=== PATIENT | female | born 2005 | race Caucasian/White ===

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

== ENCOUNTER 2023-01-14 13:54 | Emergency (ER) | payer MEDICAID, OTHER ==
[2023-01-14 14:00] VITALS: BP 136/89; PULSE 88; O2SAT 100
--- NOTE | 2023-01-14 14:32 | ERPHSYRPT ---
- History of Present Illness Source: patient Exam Limitations: no limitations Patient Subjective Stated Complaint: had a neddle stick at 1340 today, has small puncture wound to left index finger Triage Nursing Assessment: pt alert, resp easy, walked in, skin w/d/p. 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 Baby's blood available for HIV/Hep testing. Pt immunized for HepB/Tdap and is currently not . Timing/Duration: other (Before ER arrival) Severity: mild Modifying Factors: Improves With: nothing Associated Symptoms: denies symptoms Allergies/Adverse Reactions: amoxicillin Allergy (Verified 01/14/23 13:58) mesalamine Allergy (Verified 01/14/23 13:59) Home Medications: Ferrous Gluconate [Iron] 1 ea DAILY 11/21/22 [History] Sulfasalazine 500 mg [Azulfidine 500 mg] 500 mg PO QID 12/22/22 [History] Hx Tetanus, Diphtheria Vaccination/Date Given: Yes Hx Influenza Vaccination/Date Given: Yes Hx Pneumococcal Vaccination/Date Given: No Immunizations Up to Date: Yes Travel Risk - International Travel Have you traveled outside of the country in past 3 weeks: No - Coronavirus Screening Are you exhibiting any of the following symptoms?: No Close contact with a COVID-19 positive Pt in past 14-21 Days: No - Vaccine Status Have you recieved a Covid-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 - Review of Systems Constitutional: No Symptoms Eyes: No Symptoms Ears, Nose, & Throat: No Symptoms Respiratory: No Symptoms Cardiac: No Symptoms Abdominal/Gastrointestinal: No Symptoms Genitourinary Symptoms: No Symptoms Musculoskeletal: No Symptoms Skin: No Symptoms Neurological: No Symptoms Psychological: No Symptoms Endocrine: No Symptoms Hematologic/Lymphatic: No Symptoms Immunological/Allergic: No Symptoms - Past Medical History Pertinent Past Medical History: Yes Neurological History: Migraines ENT History: No Pertinent History Cardiac History: No Pertinent History Respiratory History: Asthma Endocrine Medical History: Hypothyroidism Musculoskeletal History: No Pertinent History GI Medical History: GI Bleed History: No Pertinent History Psycho-Social History: Anxiety Female Reproductive Disorders: No Pertinent History Other Medical History: low iron - Past Surgical History Past Surgical History: Yes Cardiac: No Pertinent History Respiratory: No Pertinent History Gastrointestinal: No Pertinent History Other Surgical History: wisdom teeth removal - Social History Smoking Status: Never smoker Exposure to second hand smoke: No Drug Use: none Patient Lives Alone: No - Female History Hx Last Menstrual Period: 2 weeks ago Hx Now: No - Nursing Vital Signs Nursing Vital Signs: Initial Vital Signs Temperature 97.2 F 01/14/23 13:59 Pulse Rate 88 01/14/23 13:59 Respiratory Rate 16 01/14/23 13:59 Blood Pressure 136/89 01/14/23 13:59 O2 Sat by Pulse Oximetry 100 01/14/23 13:59 Pain Scale Pain Intensity 0 WNL - Physical Exam General Appearance: no apparent distress Eye Exam: PERRL/EOMI Ears, Nose, Throat Exam: normal ENT inspection Neck Exam: normal inspection Respiratory Exam: normal breath sounds Cardiovascular Exam: regular rate/rhythm Gastrointestinal/Abdomen Exam: soft Extremity Exam: other (Superficial needle stick L 2nd digit/Good hemostasis/FROM/good distal capillary return and sensation) Neurologic Exam: alert, oriented x 3, cooperative, card placer II-XII nml as tested, normal mood/affect, nml cerebellar function, nml station & gait, sensation nml Skin Exam: warm, dry Lymphatic Exam: No adenopathy SpO2 Interpretation: normal SpO2: 100 O2 Delivery: Room Air Ordered Tests: Active Orders 24 hr Category Date Time Status Wound Care STAT Care 01/14/23 14:25 Completed Medication Summary Discontinued Medications Generic Name Dose Route Start Last Admin Trade Name Kenroy PRN Reason Stop Dose Admin Morphine Sulfate Confirm 01/14/23 15:26 Morphine Sulfate 4 Mg/Ml Injection Administered 01/14/23 15:27 Dose 4 mg .ROUTE .STK-MED ONE Ondansetron HCl Confirm 01/14/23 15:26 Ondansetron Hcl 4 Mg/2 Ml Vial Administered 01/14/23 15:27 Dose 4 mg .ROUTE .STK-MED ONE - Progress Progress Note: 01/14/23 14:36 Nursing note and vital signs reviewed No food or housing insecurities noted HIV/Hepatitis profile drawn Employee Health alerted and appropriate paper work done Permission given for source to be tested No need for PEP which was agreed upon by pt Counseled pt/family regarding: diagnosis, need for follow-up Medical Desision Making - Risk of complications Low Risk: Low risk of morbidity from additional dx testing or treatment - Departure Departure Disposition: Home Clinical Impression: Needle stick injury of finger Condition: Stable Critical Care Time: No Referrals: NEGRO DUMONT MD [Primary Care Provider] - Follow up/PCP as directed Additional Instructions: Follow up with employee health Wash area 1-2 times a day with soap/water Watch for signs of infection-any pus/increasing redness/temperature greater than 100.5
[2023-01-14] MEDS ORDERED: MORPHINE SULFATE 4 MG INJ ONE (15:26)
[2023-01-14] MEDS ORDERED: Zofran 4 MG/2 ML VIAL ONE (15:26)
[2023-01-16 16:34] LABS: HBsAg Screen Negative (Negative); HIV Screen 4th Generation wRfx Non Reactive (Non Reactive); Hep B Surface Ab, Quant <3.1 mIU/mL (Immunity>9.9); Hep C Virus Ab Non Reactive (Non Reactive)
== END 2023-01-14 14:49 | disposition home or self-care (01) ==
LOC: ED 13:54
DX: S61.231A Puncture wound without foreign body of left index finger without damage to nail, initial encounter (principal); W46.0XXA Contact with hypodermic needle, initial encounter; Y92.239 Unspecified place in hospital as the place of occurrence of the external cause; Y99.0 Civilian activity done for income or pay; Z79.899 Other long term (current) drug therapy
CPT/HCPCS: 36415; 86317; 87340; 87389; 99282; G0472; 86803; J2270; J2405

== ENCOUNTER 2023-02-25 22:46 | Emergency (ER) | payer OTHER, MEDICAID ==
[2023-02-25] MEDS ORDERED: Zofran 4 MG/2 ML VIAL IV ONE (23:23)
[2023-02-25] MEDS ORDERED: Sodium Chloride 0.9% 1000 ML 1,000 ML IV STA (23:23)
[2023-02-25] MEDS ORDERED: Hydromorphone 1 mg/ml Injection IV ONE (23:23)
--- NOTE | 2023-02-25 23:27 | ERPHSYRPT ---
- History of Present Illness Time Seen by Provider: 02/25/23 23:20 Historian: patient, family Exam Limitations: no limitations Physician History: This is a 17-year-old female who has a history of ulcerative colitis and this morning she noticed significant pain that "flared up" suddenly. It was in the left upper quadrant. Throughout the day it has radiated across her upper abdomen in the epigastric region to the right side. There is been bloody stools present that are loose. This has not increased. However, the pain has increased. Patient takes prednisone 35 mg orally each day. She has chronic anemia and she is on daily iron supplementation. She has had these "flareups" once a month for the last 3 months. She denies chest pain. She denies shortness of breath. If she has to be transferred, patient wants to be transferred to [facility] in [place]. Timing/Duration: today Activities at Onset: none Quality: aching Abdominal Pain Onset Location: RUQ, LUQ, epigastric Pain Radiation: no radiation Severity of Pain-Max: moderate Severity of Pain-Current: moderate Modifying Factors: Improves With: other (Bloody diarrhea) Associated Symptoms: diarrhea (Bloody), loss of appetite Previous symptoms: same symptoms as today, recently seen, recently treated Allergies/Adverse Reactions: amoxicillin Allergy (Verified 02/26/23 01:20) Itching mesalamine Allergy (Verified 02/26/23 01:20) Penicillins Allergy (Verified 02/26/23 01:20) Itching Home Medications: Ferrous Gluconate [Iron] 1 ea DAILY 11/21/22 [History] Ascorbic Acid/Ascorbate Sodium [Vitamin C 500 mg Tablet Chew] 500 mg PO UD 02/17/23 [History] Promethazine HCl 25 mg [Phenergan 25 mg] 25 mg PO Q6HPRN PRN 02/17/23 [History] predniSONE [Prednisone] 35 mg PO LUNCH 02/17/23 [History] Hx Tetanus, Diphtheria Vaccination/Date Given: Yes Hx Influenza Vaccination/Date Given: Yes Hx Pneumococcal Vaccination/Date Given: No Travel Risk - International Travel Have you traveled outside of the country in past 3 weeks: No - Coronavirus Screening Are you exhibiting any of the following symptoms?: No Close contact with a COVID-19 positive Pt in past 14-21 Days: No - Vaccine Status Have you recieved a Covid-19 vaccination: Yes House Mother: Unknown - Vaccination Dates Date of 2cond Vaccination (if applicable): 2020 Dates if Unknown: ? - Review of Systems Constitutional: No Symptoms Eyes: No Symptoms Ears, Nose, & Throat: No Symptoms Respiratory: No Symptoms Cardiac: No Symptoms Abdominal/Gastrointestinal: Abdominal Pain, Hematochezia Genitourinary Symptoms: No Symptoms Musculoskeletal: No Symptoms Skin: No Symptoms Neurological: No Symptoms, Sensory Changes Psychological: No Symptoms Endocrine: No Symptoms Hematologic/Lymphatic: No Symptoms Immunological/Allergic: No Symptoms All Other Systems: Reviewed and Negative - Past Medical History Pertinent Past Medical History: Yes Neurological History: Migraines ENT History: No Pertinent History Cardiac History: No Pertinent History Respiratory History: Asthma Endocrine Medical History: Hypothyroidism Musculoskeletal History: No Pertinent History GI Medical History: Colitis, Crohns Disease, GI Bleed History: No Pertinent History Psycho-Social History: Anxiety Female Reproductive Disorders: No Pertinent History Other Medical History: low iron - Past Surgical History Past Surgical History: Yes Cardiac: No Pertinent History Respiratory: No Pertinent History Gastrointestinal: No Pertinent History Other Surgical History: wisdom teeth removal - Social History Smoking Status: Never smoker Exposure to second hand smoke: No Drug Use: none Patient Lives Alone: No - Female History Hx Now: No - Nursing Vital Signs Nursing Vital Signs: Initial Vital Signs Temperature 97.6 F 02/25/23 23:16 Pulse Rate 87 02/25/23 23:16 Respiratory Rate 16 02/25/23 23:16 Blood Pressure 168/75 02/25/23 23:16 O2 Sat by Pulse Oximetry 100 02/25/23 23:16 Pain Scale Pain Intensity 5 - Physical Exam General Appearance: no apparent distress, alert, anxiety Eye Exam: PERRL/EOMI, eyes nml inspection Ears, Nose, Throat Exam: normal ENT inspection, moist mucous membranes Neck Exam: normal inspection, non-tender, supple, full range of motion Respiratory Exam: normal breath sounds, lungs clear, airway intact, No chest tenderness, No respiratory distress Cardiovascular Exam: regular rate/rhythm, normal heart sounds, normal peripheral pulses Gastrointestinal/Abdomen Exam: soft, normal bowel sounds, tenderness, guarding Pelvic Exam: not done Rectal Exam: not done Back Exam: normal inspection, normal range of motion, No CVA tenderness, No vertebral tenderness Extremity Exam: normal inspection, normal range of motion, pelvis stable Neurologic Exam: alert, oriented x 3, cooperative, senior drafter II-XII nml as tested, normal mood/affect, nml cerebellar function, nml station & gait, sensation nml Skin Exam: normal color, warm, dry Lymphatic Exam: No adenopathy SpO2 Interpretation: normal O2 Delivery: Room Air - Course Nursing assessment & vital signs reviewed: Yes Ordered Tests: Active Orders 24 hr Category Date Time Status IV Insertion STAT Care 02/25/23 23:23 Active AMYLASE Stat Lab 02/25/23 23:45 Completed BLOOD CULTURE Stat Lab 02/25/23 23:55 Received CBC W DIFF Stat Lab 02/25/23 23:45 Completed CMP Stat Lab 02/25/23 23:45 Completed HCG QUALITATIVE, SERUM Stat Lab 02/25/23 11:55 Completed LIPASE Stat Lab 02/25/23 23:45 Completed UA W/RFX UR CULTURE Stat Lab 02/25/23 23:47 Completed Medication Summary Discontinued Medications Generic Name Dose Route Start Last Admin Trade Name Freq PRN Reason Stop Dose Admin Methylprednisolone Sodium 0 mg 02/26/23 00:36 02/26/23 00:41 Succinate 125 mg/ Sterile IV 02/26/23 00:37 125 mg Water 2 ml STAT ONE Administration Hydromorphone HCl 1 mg 02/25/23 23:23 02/25/23 23:52 Hydromorphone 1 Mg/1ml Inj IV 02/25/23 23:24 1 mg STAT ONE Administration Hydromorphone HCl Confirm 02/25/23 23:51 Hydromorphone 1 Mg/1ml Inj Administered 02/25/23 23:52 Dose 1 mg .ROUTE .STK-MED ONE Sodium Chloride 1,000 mls @ 999 mls/hr 02/25/23 23:23 02/25/23 23:52 Sodium Chloride 0.9% 1000 Ml IV 02/26/23 00:23 999 mls/hr .Q1H1M STA Administration Sodium Chloride Confirm 02/25/23 23:51 Sodium Chloride 0.9% 1000 Ml Administered 02/25/23 23:52 Dose 1,000 mls @ ud .ROUTE .STK-MED ONE Methylprednisolone Sodium Succinate Confirm 02/26/23 00:40 Methylprednis Sod Succ 125 Mg/2 Ml Vial Administered 02/26/23 00:41 Dose 125 mg .ROUTE .STK-MED ONE Ondansetron HCl 4 mg 02/25/23 23:23 02/25/23 23:53 Ondansetron Hcl 4 Mg/2 Ml Vial IV 02/25/23 23:24 4 mg STAT ONE Administration Ondansetron HCl Confirm 02/25/23 23:51 Ondansetron Hcl 4 Mg/2 Ml Vial Administered 02/25/23 23:52 Dose 4 mg .ROUTE .STK-MED ONE Sterile Water Confirm 02/26/23 00:40 Water For Injection,Sterile 10 Ml Vial Administered 02/26/23 00:41 Dose 10 ml IJ .STK-MED ONE Lab/Rad Data: Laboratory Result Diagrams 02/25/23 23:45 02/25/23 23:45 Laboratory Results 02/25/23 02/25/23 02/25/23 Range/Units 23:47 23:45 23:45 WBC 5.1 (4.0-10.5) x10^3/uL RBC 3.90 L (4.1-5.4) x10^6/uL Hgb 10.3 L (12.0-16.0) g/dL Hct 33.7 L (35-47) % MCV 86.4 (78-100) fL MCH 26.4 (26-32) pg MCHC 30.6 L (32-36) g/dL RDW 15.4 H (11.5-14.0) % Plt Count 266 (150-450) x10^3/uL MPV 10.3 (7.5-11.0) fL Gran % 37.0 (36.0-66.0) % Immature Gran % (Auto) 0.2 (0.00-0.4) % Nucleat RBC Rel Count 0.0 (0.00-0.1) % Eos # (Auto) 0.07 (0-0.5) x10^3/uL Immature Gran # (Auto) 0.01 (0.00-0.03) x10^3u/L Absolute Lymphs (auto) 2.28 (1.0-4.6) x10^3/uL Absolute Monos (auto) 0.78 (0.0-1.3) x10^3/uL Absolute Nucleated RBC 0.00 (0.00-0.01) x10^3u/L Lymphocytes % 45.0 H (24.0-44.0) % Monocytes % 15.4 H (0.0-12.0) % Eosinophils % 1.4 (0.00-5.0) % Basophils % 1.0 (0.0-0.4) % Absolute Granulocytes 1.88 (1.4-6.9) x10^3/uL Basophils # 0.05 (0-0.4) x10^3/uL Sodium 140 (137-145) mmol/L Potassium 4.2 (3.5-5.1) mmol/L Chloride 107 (98-107) mmol/L Carbon Dioxide 26 (22-30) mmol/L Anion Gap 11.1 (5-15) MEQ/L BUN 15 (7-17) mg/dL Creatinine 0.75 (0.52-1.04) mg/dL Estimated GFR > 60.0 ML/MIN Glucose 101 (74-106) mg/dL Calcium 8.9 (8.4-10.2) mg/dL Total Bilirubin 0.40 (0.2-1.3) mg/dL AST 35 (14-36) U/L ALT 31 (0-35) U/L Alkaline Phosphatase 115 (38-126) U/L Serum Total Protein 7.7 (6.3-8.2) g/dL Albumin 4.3 (3.5-5.0) g/dL Amylase 82 (30-110) U/L Lipase 144 (23-300) U/L Serum HCG, Qual (NEGATIVE) Urine Color Yellow (Yellow) Urine Appearance Clear (Clear) Urine pH 5.5 (4.6-8.0) Ur Specific Ste[place]oe 1.020 (1.005-1.030) Urine Protein Negative (Negative) Urine Glucose (UA) Negative (Negative) mg/dL Urine Ketones Negative (Negative) Urine Blood Negative (Negative) Urine Nitrite Negative (Negative) Urine Bilirubin Negative (Negative) Urine Urobilinogen 0.2 (0.2) mg/dL Ur Leukocyte Esterase Trace A (Negative) U Hyaline Cast (Auto) NONE SEEN (0-2) /LPF Urine Microscopic RBC 0-2 (0-5) /HPF Urine Microscopic WBC 0-2 (0-5) /HPF Ur Epithelial Cells None Seen (None Seen) /HPF Urine Bacteria None Seen (None Seen) /HPF Urine Culture Reflexed NO (NO) 02/25/23 Range/Units 11:55 WBC (4.0-10.5) x10^3/uL RBC (4.1-5.4) x10^6/uL Hgb (12.0-16.0) g/dL Hct (35-47) % MCV (78-100) fL MCH (26-32) pg MCHC (32-36) g/dL RDW (11.5-14.0) % Plt Count (150-450) x10^3/uL MPV (7.5-11.0) fL Gran % (36.0-66.0) % Immature Gran % (Auto) (0.00-0.4) % Nucleat RBC Rel Count (0.00-0.1) % Eos # (Auto) (0-0.5) x10^3/uL Immature Gran # (Auto) (0.00-0.03) x10^3u/L Absolute Lymphs (auto) (1.0-4.6) x10^3/uL Absolute Monos (auto) (0.0-1.3) x10^3/uL Absolute Nucleated RBC (0.00-0.01) x10^3u/L Lymphocytes % (24.0-44.0) % Monocytes % (0.0-12.0) % Eosinophils % (0.00-5.0) % Basophils % (0.0-0.4) % Absolute Granulocytes (1.4-6.9) x10^3/uL Basophils # (0-0.4) x10^3/uL Sodium (137-145) mmol/L Potassium (3.5-5.1) mmol/L Chloride (98-107) mmol/L Carbon Dioxide (22-30) mmol/L Anion Gap (5-15) MEQ/L BUN (7-17) mg/dL Creatinine (0.52-1.04) mg/dL Estimated GFR ML/MIN Glucose (74-106) mg/dL Calcium (8.4-10.2) mg/dL Total Bilirubin (0.2-1.3) mg/dL AST (14-36) U/L ALT (0-35) U/L Alkaline Phosphatase (38-126) U/L Serum Total Protein (6.3-8.2) g/dL Albumin (3.5-5.0) g/dL Amylase (30-110) U/L Lipase (23-300) U/L Serum HCG, Qual NEGATIVE (NEGATIVE) Urine Color (Yellow) Urine Appearance (Clear) Urine pH (4.6-8.0) Ur Specific Steptoe (1.005-1.030) Urine Protein (Negative) Urine Glucose (UA) (Negative) mg/dL Urine Ketones (Negative) Urine Blood (Negative) Urine Nitrite (Negative) Urine Bilirubin (Negative) Urine Urobilinogen (0.2) mg/dL Ur Leukocyte Esterase (Negative) U Hyaline Cast (Auto) (0-2) /LPF Urine Microscopic RBC (0-5) /HPF Urine Microscopic WBC (0-5) /HPF Ur Epithelial Cells (None Seen) /HPF Urine Bacteria (None Seen) /HPF Urine Culture Reflexed (NO) - Progress Progress: improved, pain not gone completely, re-examined Progress Note: 02/26/23 01:21 CAT scan of the abdomen pelvis shows possible descending colonic wall with mural thickening. There is no evidence of abscess or perforation or free air. This patient's medical issue is 1 of moderate complexity. Level of complexity in the work-up performed based on review of the patient's past medical history, review of the patient's medication list, review of the patient's drug allergy list. History of present illness and physical findings on examination. The w ork-up in this patient includes placement of intravenous line, test, infusion of 1 L normal saline, Zofran infusion, 1 mg of Dilaudid infusion, bolus of Solu-Medrol 125 mg intravenous steroid, CBC, CMP, amylase and lipase. There is no acute emergent findings on the work-up. Patient has an ulcerative colitis flareup. Patient is to continue her steroid. I will send to take home [place] with her to home. She is to call her GI specialist later on today to make arranges for follow-up appointment and further evaluation and management. Counseled pt/family regarding: lab results, diagnosis, need for follow-up, rad results Medical Desision Making - Independent Historian Additional History obtained from: Spouse - Diagnostic Testing Diagnostic test were ordered, analyzed, and reviewed by me: Yes Radiological Interpretation: Reviewed by me, Teleradiologist Report - Risk of complications Low Risk: Low risk of morbidity from additional dx testing or treatment - Departure Departure Disposition: Home Clinical Impression: Ulcerative colitis without complications Condition: Stable Critical Care Time: No Referrals: NEGRO DUMONT MD [Primary Care Provider] - Follow up/PCP as directed Additional Instructions: Decreased diet down to clear liquids. Call your mortgage accounting clerk later this morning to make arrangements for follow-up appointment for further evaluation management. Continue your prednisone at the current level.
[2023-02-25] MEDS ORDERED: Hydromorphone 1 mg/ml Injection ONE (23:51)
[2023-02-25] MEDS ORDERED: Zofran 4 MG/2 ML VIAL ONE (23:51)
[2023-02-25] MEDS ORDERED: Sodium Chloride 0.9% 1000 ML 1,000 ML ONE (23:51)
[2023-02-26] LABS: Absolute Neutrophil Ct (ANC) 1.88 x10^3/uL (1.4-6.9); Basophil (Absolute #) 0.05 x10^3/uL (0-0.4); Eosinophil % 1.4 % (0.00-5.0); Eosinophil (Absolute #) 0.07 x10^3/uL (0-0.5); Hematocrit 33.7 % (35-47); Hemoglobin 10.3 g/dL (12.0-16.0); IMMATURE GRAN # 0.01 x10^3u/L (0.00-0.03); IMMATURE GRAN % 0.2 % (0.00-0.4); Lymphocyte (Absolute #) 2.28 x10^3/uL (1.0-4.6); Mean Cell Volume 86.4 fL (78-100); Mean Corpuscular Hemoglobin 26.4 pg (26-32); Mean Corpuscular Hgb Concent. 30.6 g/dL (32-36); Mean Platelet Volume 10.3 fL (7.5-11.0); Monocyte (Absolute #) 0.78 x10^3/uL (0.0-1.3); Monocytes % 15.4 % (0.0-12.0); Platelet Count 266 x10^3/uL (150-450); Red Cell Distribution Width 15.4 % (11.5-14.0); White Blood Count 5.1 x10^3/uL (4.0-10.5)
[2023-02-26 00:06] LABS: Appearance Clear (Clear); Bacteria None Seen /HPF (None Seen); Bilirubin Negative (Negative); Blood Negative (Negative); Epithelial Cells None Seen /HPF (None Seen); Glucose, Urine Negative (Negative); Hyaline Casts NONE SEEN /LPF (0-2); Ketones Negative (Negative); Leukocyte Esterase Trace (Negative); Nitrite Negative (Negative); Ph 5.5 (4.6-8.0); Protein,Urine Dip Negative (Negative); RBC 0-2 /HPF (0-5); Urobilinogen 0.2 mg/dL (0.2); WBC 0-2 /HPF (0-5)
[2023-02-26 00:08] LABS: ADD URINE CULTURE? NO (NO)
[2023-02-26 00:14] LABS: HCG SERUM TEST NEGATIVE (NEGATIVE)
[2023-02-26 00:14] LABS: ALBUMIN 4.3 g/dL (3.5-5.0); ALKALINE PHOSPHATASE 115 U/L (38-126); AMYLASE 82 U/L (30-110); ANION GAP 11.1 MEQ/L (5-15); BLOOD UREA NITROGEN 15 mg/dL (7-17); CHLORIDE 107 mmol/L (98-107); Calcium 8.9 mg/dL (8.4-10.2); Carbon Dioxide 26 mmol/L (22-30); Creatinine 1 0.75 mg/dL (0.52-1.04); EST GLOMERULAR FILTRATION RATE > 60.0 ML/MIN; Glucose 101 mg/dL (74-106); LIPASE 144 U/L (23-300); Potassium 4.2 mmol/L (3.5-5.1); SGOT/AST 35 U/L (14-36); SGPT/ALT 31 U/L (0-35); SODIUM 140 mmol/L (137-145); Total Protein 7.7 g/dL (6.3-8.2)
[2023-02-26] MEDS ORDERED: solu-MEDROL 125 MG, Sterile H2O 10 ml 2 ML IV ONE ×2 (00:36)
[2023-02-26] MEDS ORDERED: Sterile H2O 10 ml IJ ONE (00:40)
[2023-02-26] MEDS ORDERED: solu-MEDROL ONE (00:40)
--- NOTE | 2023-02-26 01:12 | XRAY ---
CLINICAL HISTORY:ABD pain COMPARISON:CT dated 11/21/2022; TECHNIQUES:CT scan of the abdomen and pelvis was performed without IV contrast. Coronal and sagittal reconstructive images were also obtained; FINDINGS: Abdomen:. Suggestion of mild circumferential mural thickening involving proximal descending colon, with maximum thickness of 6 mm. Few subcentimetric pericolonic nodes are noted. Few diverticulae also noted in descending colon. The liver is of average size. No focal or diffuse parenchymal abnormality. The portal vein, intrahepatic biliary radicals, and the bile ducts are normal. The spleen, pancreas, and adrenal glands are unremarkable. The kidneys are unremarkable. They are normal in size and shape. No calculi or hydronephrosis. The gallbladder is distended. There is no evidence of wall thickening/ pericholecystic collection. The ascending colon, the transverse colon, and the visualized small bowel loops are unremarkable. There is no evidence of significant enlargement of the mesenteric or retroperitoneal lymph nodes. Pelvis:. The urinary bladder is unremarkable. The rectosigmoid colon is unremarkable. The uterus and adnexa appear unremarkable. Bilateral ovarian cyst, measures about 23 X 16 mm in right ovary and 20 X 24 mm in left ovary. No evidence of pelvic lymphadenopathy. No definite bony abnormalities could be depicted. IMPRESSION: Suggestion of mild circumferential mural thickening involving proximal descending colon with few sub centimetric pericolonic nodes. Few diverticulae also noted in descending colon. Possibility of inflammatory bowel disease appears more likely than infective etiology in a known case of ulcerative colitis. Possibility of early acute diverticulitis could not be excluded. There is interval development of mural thickening in the descending colon with subcentimetric pericolonic nodes in comparison to previous CT study dated 11/21/2022. Bilateral ovarian cyst, shows interval regression in size. Electronically Signed by: Debora Bernabe MD. (02/26/2023 00:05:35 MERCURY RECOVERER)
[2023-02-26] MEDS ORDERED: Hydromorphone 1 mg/ml Injection IV ONE (01:20)
[2023-02-26] MEDS ORDERED: NORCO 5/325 MG PO ONE (01:25)
[2023-02-26] MEDS ORDERED: Hydromorphone 1 mg/ml Injection ONE (01:28)
[2023-02-26] MEDS ORDERED: NORCO 5/325 MG ONE (01:28)
[2023-02-26 01:38] VITALS: O2SAT 96
[2023-02-26 02:14] VITALS: BP 124/75; PULSE 71
== END 2023-02-26 02:08 | disposition home or self-care (01) ==
LOC: ED 22:46
DX: K51.90 Ulcerative colitis, unspecified, without complications (principal); R10.12 Left upper quadrant pain; K92.1 Melena; Z79.52 Long term (current) use of systemic steroids; Z79.899 Other long term (current) drug therapy
CPT/HCPCS: 36000; 36415; 74176; 80053; 81001; 82150; 83690; 84703; 85025; 87040; 96374; 96375; 96376; 99284; J1170; J2405; J2930; A9270-GY

== ENCOUNTER 2023-04-30 13:51 | Emergency (ER) | payer OTHER ==
[2023-04-30 14:14] VITALS: TEMP 98.5
[2023-04-30] MEDS ORDERED: Lactated Ringers 1,000 ML IV ONE ×4 (14:35→16:02)
[2023-04-30] MEDS ORDERED: Zofran 4 MG/2 ML VIAL IV ONE (14:35)
[2023-04-30] MEDS ORDERED: BENADRYL 50 MG/ML IV ONE (14:35)
[2023-04-30] MEDS ORDERED: SUBLIMAZE 100 MCG/2 ML IV ONE (14:35)
--- NOTE | 2023-04-30 14:40 | ERPHSYRPT ---
- History of Present Illness Time Seen by Provider: 04/30/23 14:37 Historian: patient, family, EMS Patient Subjective Stated Complaint: C/O left sided pain, with numbness, N/V, SOB. Pain started yesterday and she was seen in [facility]; they x-rayed her stomach per patient and visitor reports. Patient eating at a local restraunt today when she became dizzy, legs became numb, patient fell in the bathroom. Triage Nursing Assessment: Patient arrived by ambulance. She is Hyperventilating upon arrival; labored breaths. She is alert and oriented; anxious. Skin is moist; patient with beads of sweat noted under nares. Skin tone normal. Patient states right arm feels heavy and tingly when attempting to sign for EMS. Physician History: C/O left sided pain, with numbness, N/V, SOB. Pain started yesterday and she was seen in [facility]; they x-rayed her stomach per patient and visitor reports. Patient eating at a local restraunt today when she became dizzy, legs became numb, patient fell in the bathroom. Patient was diagnosed with ulcerative colitis October 2022, since then patient is undergoing Humira IV treatment. Patient recently got colonoscopy and which did show extensive involvement of the left descending colon. Patient stated that pain is on the left upper quadrant radiating to the back. Denies any blood in the stool or urine. Denies any diarrhea or constipation. Patient has a last meal couple hours ago at [employer]. Timing/Duration: today Abdominal Pain Onset Location: [facility] Pain Radiation: back Severity of Pain-Max: moderate Severity of Pain-Current: moderate Modifying Factors: Improves With: nothing Associated Symptoms: fatigue, loss of appetite, shortness of breath, weakness, No diarrhea, No fever/chills, No nausea, No vomiting Allergies/Adverse Reactions: amoxicillin Allergy (Verified 04/30/23 13:55) Itching meperidine [From Demerol] Allergy (Verified 04/30/23 15:19) mesalamine Allergy (Verified 04/30/23 13:55) Penicillins Allergy (Verified 04/30/23 13:55) Itching Home Medications: Ascorbic Acid/Ascorbate Sodium [Vitamin C 500 mg Tablet Chew] 500 mg PO UD 02/17/23 [History] Promethazine HCl 25 mg [Phenergan 25 mg] 25 mg PO Q6HPRN PRN 02/17/23 [History] predniSONE [Prednisone] 40 mg PO LUNCH 02/17/23 [History] Adalimumab [Humira(Cf) Pen] 0.4 ml SQ CLARIFY 04/30/23 [History] Dicyclomine HCl 1 tab PO QID 04/30/23 [History] Hx Tetanus, Diphtheria Vaccination/Date Given: Yes Hx Influenza Vaccination/Date Given: Yes Hx Pneumococcal Vaccination/Date Given: No Immunizations Up to Date: Yes Travel Risk - International Travel Have you traveled outside of the country in past 3 weeks: No - Coronavirus Screening Are you exhibiting any of the following symptoms?: Yes Symptoms: Shortness of Breath Close contact with a COVID-19 positive Pt in past 14-21 Days: No - Vaccine Status Have you recieved a Covid-19 vaccination: Yes 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 - Review of Systems Constitutional: Weakness, No Fever, No Chills Eyes: No Symptoms Ears, Nose, & Throat: No Symptoms Respiratory: Dyspnea, No Cough Cardiac: No Chest Pain, No Edema, No Syncope Abdominal/Gastrointestinal: Abdominal Pain, No Nausea, No Vomiting, No Diarrhea Genitourinary Symptoms: No Dysuria Musculoskeletal: No Back Pain, No Neck Pain Skin: No Rash Neurological: No Dizziness, No Focal Weakness, No Sensory Changes Psychological: No Symptoms Endocrine: No Symptoms All Other Systems: Reviewed and Negative - Past Medical History Pertinent Past Medical History: Yes Neurological History: Migraines ENT History: No Pertinent History Cardiac History: No Pertinent History Respiratory History: Asthma Endocrine Medical History: Hypothyroidism Musculoskeletal History: No Pertinent History GI Medical History: Colitis, Crohns Disease, GI Bleed History: No Pertinent History Psycho-Social History: Anxiety Female Reproductive Disorders: No Pertinent History Other Medical History: low iron - Past Surgical History Past Surgical History: Yes Cardiac: No Pertinent History Respiratory: No Pertinent History Gastrointestinal: No Pertinent History Other Surgical History: wisdom teeth removal - Social History Smoking Status: Never smoker Exposure to second hand smoke: No Drug Use: none Patient Lives Alone: No - Female History Hx Last Menstrual Period: 2 weeks ago Hx Now: No - Nursing Vital Signs Nursing Vital Signs: Initial Vital Signs Temperature 98.5 F 04/30/23 13:52 Pulse Rate 83 04/30/23 13:52 Respiratory Rate 36 H 04/30/23 13:52 Blood Pressure 138/85 04/30/23 13:52 O2 Sat by Pulse Oximetry 100 04/30/23 13:52 Pain Scale Pain Intensity 8 - Physical Exam General Appearance: no apparent distress, alert Eye Exam: PERRL/EOMI, eyes nml inspection Ears, Nose, Throat Exam: normal ENT inspection, pharynx normal, moist mucous membranes Neck Exam: normal inspection, non-tender, supple, full range of motion Respiratory Exam: normal breath sounds, lungs clear, No respiratory distress Cardiovascular Exam: regular rate/rhythm, normal heart sounds Gastrointestinal/Abdomen Exam: soft, normal bowel sounds, tenderness (Left upper quadrant), No mass, No guarding, No pulsatile mass, No rebound, No organomegaly Back Exam: normal inspection, normal range of motion, No CVA tenderness, No vertebral tenderness Extremity Exam: normal inspection, normal range of motion, pelvis stable Neurologic Exam: alert, oriented x 3, cooperative, normal mood/affect, nml cerebellar function, sensation nml, No motor deficits Skin Exam: normal color, warm, dry SpO2: 100 - Course Nursing assessment & vital signs reviewed: Yes EKG Interpreted by Me: Sinus Rhythm - CT Exams Abdomen/Pelvis CT Interpretation: Tele-radiologist Report Ordered Tests: Active Orders 24 hr Category Date Time Status EKG-ER Only STAT Care 04/30/23 15:37 Active IV Insertion STAT Care 04/30/23 14:37 Active ABDOMEN AND PELVIS W/0 CONTRAS [CT] Stat Exams 04/30/23 14:41 Completed AMYLASE Stat Lab 04/30/23 15:00 Completed CBC W DIFF Stat Lab 04/30/23 15:00 Completed CMP Stat Lab 04/30/23 15:00 Completed LIPASE Stat Lab 04/30/23 15:00 Completed UA W/RFX UR CULTURE Stat Lab 04/30/23 16:21 Ordered Medication Summary Generic Name Dose Route Start Last Admin Trade Name Freq PRN Reason Stop Dose Admin Lactated Ringer's 1,000 mls @ 999 mls/hr 04/30/23 16:02 04/30/23 16:03 Lactated Ringers IV 04/30/23 17:02 999 mls/hr .Q1H1M ONE Administration Discontinued Medications Generic Name Dose Route Start Last Admin Trade Name Freq PRN Reason Stop Dose Admin Methylprednisolone Sodium 0 mg 04/30/23 16:17 04/30/23 16:24 Succinate 125 mg/ Sterile IV 04/30/23 16:18 Not Given Water 2 ml STAT ONE Diphenhydramine HCl 25 mg 04/30/23 14:35 04/30/23 14:46 Diphenhydramine Hcl 50 Mg/Ml Vial IV 04/30/23 14:36 25 mg STAT ONE Administration Diphenhydramine HCl Confirm 04/30/23 14:42 Diphenhydramine Hcl 50 Mg/Ml Vial Administered 04/30/23 14:43 Dose 50 mg .ROUTE .STK-MED ONE Fentanyl Citrate 50 mcg 04/30/23 14:35 04/30/23 14:46 Fentanyl Citrate 100 Mcg/2 Ml* Vial IV 04/30/23 14:36 50 mcg STAT ONE Administration Fentanyl Citrate Confirm 04/30/23 14:43 Fentanyl Citrate 100 Mcg/2 Ml* Vial Administered 04/30/23 14:44 Dose 100 mcg .ROUTE .STK-MED ONE Hydromorphone HCl 1 mg 04/30/23 15:19 04/30/23 15:21 Hydromorphone 1 Mg/1ml Inj IV 04/30/23 15:20 1 mg STAT ONE Administration Hydromorphone HCl Confirm 04/30/23 15:20 Hydromorphone 1 Mg/1ml Inj Administered 04/30/23 15:21 Dose 1 mg .ROUTE .STK-MED ONE Lactated Ringer's 1,000 mls @ 999 mls/hr 04/30/23 14:35 04/30/23 15:53 Lactated Ringers IV 04/30/23 15:35 Infused .Q1H1M ONE Infusion Lactated Ringer's Confirm 04/30/23 14:43 Lactated Ringers Administered 04/30/23 14:44 Dose 1,000 mls @ ud IV .STK-MED ONE Lactated Ringer's Confirm 04/30/23 16:02 Lactated Ringers Administered 04/30/23 16:03 Dose 1,000 mls @ ud IV .STK-MED ONE Methylprednisolone Sodium Succinate Confirm 04/30/23 16:23 Methylprednis Sod Succ 125 Mg/2 Ml Vial Administered 04/30/23 16:24 Dose 125 mg .ROUTE .STK-MED ONE Metoclopramide HCl 10 mg 04/30/23 15:58 04/30/23 16:03 Metoclopramide Hcl 10 Mg/2 Ml Vial IV 04/30/23 15:59 10 mg STAT ONE Administration Metoclopramide HCl Confirm 04/30/23 16:02 Metoclopramide Hcl 10 Mg/2 Ml Vial Administered 04/30/23 16:03 Dose 10 mg .ROUTE .STK-MED ONE Ondansetron HCl 4 mg 04/30/23 14:35 04/30/23 14:46 Ondansetron Hcl 4 Mg/2 Ml Vial IV 04/30/23 14:36 4 mg STAT ONE Administration Ondansetron HCl Confirm 04/30/23 14:42 Ondansetron Hcl 4 Mg/2 Ml Vial Administered 04/30/23 14:43 Dose 4 mg .ROUTE .STK-MED ONE Pantoprazole Sodium 40 mg 04/30/23 15:58 04/30/23 16:03 Pantoprazole 40 Mg Vial IV 04/30/23 15:59 40 mg STAT ONE Administration Pantoprazole Sodium Confirm 04/30/23 16:02 Pantoprazole 40 Mg Vial Administered 04/30/23 16:03 Dose 40 mg IV .STK-MED ONE Sterile Water Confirm 04/30/23 16:23 Water For Injection,Sterile 10 Ml Vial Administered 04/30/23 16:24 Dose 10 ml IJ .STK-MED ONE Lab/Rad Data: Laboratory Result Diagrams 04/30/23 15:00 04/30/23 15:00 Laboratory Results 04/30/23 04/30/23 Range/Units 15:00 15:00 WBC 5.3 (4.0-10.5) x10^3/uL RBC 4.38 (4.1-5.4) x10^6/uL Hgb 11.0 L (12.0-16.0) g/dL Hct 36.5 (35-47) % MCV 83.3 (78-100) fL MCH 25.1 L (26-32) pg MCHC 30.1 L (32-36) g/dL RDW 14.4 H (11.5-14.0) % Plt Count 215 (150-450) x10^3/uL MPV 10.8 (7.5-11.0) fL Gran % 54.7 (36.0-66.0) % Immature Gran % (Auto) 0.2 (0.00-0.4) % Nucleat RBC Rel Count 0.0 (0.00-0.1) % Eos # (Auto) 0.03 (0-0.5) x10^3/uL Immature Gran # (Auto) 0.01 (0.00-0.03) x10^3u/L Absolute Lymphs (auto) 1.82 (1.0-4.6) x10^3/uL Absolute Monos (auto) 0.50 (0.0-1.3) x10^3/uL Absolute Nucleated RBC 0.00 (0.00-0.01) x10^3u/L Lymphocytes % 34.6 (24.0-44.0) % Monocytes % 9.5 (0.0-12.0) % Eosinophils % 0.6 (0.00-5.0) % Basophils % 0.4 (0.0-0.4) % Absolute Granulocytes 2.88 (1.4-6.9) x10^3/uL Basophils # 0.02 (0-0.4) x10^3/uL Sodium 138 (137-145) mmol/L Potassium 3.7 (3.5-5.1) mmol/L Chloride 104 (98-107) mmol/L Carbon Dioxide 24 (22-30) mmol/L Anion Gap 14.7 (5-15) MEQ/L BUN 11 (7-17) mg/dL Creatinine 1.43 H (0.52-1.04) mg/dL Estimated GFR 50.2 ML/MIN Glucose 89 (74-106) mg/dL Calcium 9.4 (8.4-10.2) mg/dL Total Bilirubin 0.40 (0.2-1.3) mg/dL AST 23 (14-36) U/L ALT 16 (0-35) U/L Alkaline Phosphatase 181 H (38-126) U/L Serum Total Protein 8.0 (6.3-8.2) g/dL Albumin 4.8 (3.5-5.0) g/dL Amylase 107 (30-110) U/L Lipase 130 (23-300) U/L CT/ABDOMEN AND PELVIS W/0 CONTRAS CLINICAL HISTORY:left upper quadrant pain COMPARISON:02/25/2023. TECHNIQUE:A CT scan of the abdomen and pelvis was performed without IV contrast. No oral contrast. Coronal and sagittal reconstructive images were also obtained. FINDINGS: A scan through the lower chest reveals an unremarkable lung basis and heart. Abdomen: The liver is of average size and measures 16.7 cm. No focal or diffuse parenchymal abnormality. The gallbladder is distended and shows no definite stones. There is no evidence of wall thickening/ pericholecystic collection. The portal vein, intrahepatic biliary radicals, and the bile ducts are normal. The spleen, pancreas, and adrenal glands are unremarkable. The kidneys are unremarkable. They are normal in size and shape. No calculi or hydronephrosis. The ascending colon, the transverse colon, the descending colon, visualized small bowel loops are unremarkable. There is no evidence of significant enlargement of the mesenteric or retroperitoneal lymph nodes. Pelvis: The urinary bladder is unremarkable. The rectosigmoid colon is unremarkable. The cystic area measures 3.3 X 2.5 cm in the left adnexum could be a follicular cyst. The uterus and ovaries are unremarkable. The pelvic vasculature is unremarkable. No evidence of pelvic lymphadenopathy. No definite bony abnormalities could be depicted. Diffuse disc bulge measures 6.6 mm at L4-L5 level causing bilateral neural foramen narrowing. IMPRESSION: 1. The cystic area measures 3.3 X 2.5 cm seen in the left adnexum could be a follicular cyst(new finding), would recommend sonography for further evaluation and sonographic follow-up. 2. Redemonstaration of unchanged diffuse disc bulge measures 6.6 mm at L4-L5 level causing bilateral neural foramen narrowing, would recommend MRI for further evaluation. 3. The rest of the CT study of the abdomen and pelvis appears unremarkable. Electronically Signed by: Debora Bernabe MD. (04/30/2023 15:10:47 SPA ASSISTANT MANAGER) - Progress Progress: improved, pain not gone completely Counseled pt/family regarding: lab results, diagnosis, need for follow-up, rad results Medical Desision Making - Independent Historian Additional History obtained from: Mother - Diagnostic Testing Diagnostic test were ordered, analyzed, and reviewed by me: Yes Radiological Interpretation: Teleradiologist Report - Risk of complications Low Risk: Low risk of morbidity from additional dx testing or treatment - Departure Departure Disposition: Home Clinical Impression: Left ovarian cyst, Left sided abdominal pain Ulcerative colitis without complications Qualifiers: Ulcerative colitis location: unspecified ulcerative colitis location Qualified Code(s): K51.90 - Ulcerative colitis, unspecified, without complications Condition: Stable Critical Care Time: Yes Critical Care Time(excluding separately billable procedures): Critical 30-74 mins Referrals: NEGRO DUMONT MD [Primary Care Provider] - Follow up/PCP as directed Instructions: Ovarian Cyst (DC), Ovarian Cyst ED Additional Instructions: Discharge/Care Plan SHAUNA GAYLE was seen on 04/30/23 in the Emergency Room. The patient was counseled regarding Diagnosis,Lab results, Imaging studies, need for follow up and when to return to the Emergency Room. Prescriptions given: Discharge Note I have spoken with the patient and/or caregivers. I have explained the patient's condition, diagnosis and treatment plan based on the information available to me at this time. I have answered the patient's and/or caregiver's questions and addressed any concerns. The patient and/or caregivers have as good understanding of the patient's diagnosis, condition and treatment plan as can be expected at this point. The vital signs have been stable. The patient's condition is stable and appropriate for discharge from the emergency department. The patient will pursue further outpatient evaluation with the primary care physician or other designated or consulting physician as outlined in the discharge instructions. The patient and/or caregivers are agreeable to this plan of care and follow-up instructions have been explained in detail. The patient and/or caregivers have received these instruction. The patient/and or caregivers are aware that any significant change in condition or worsening of symptoms should prompt an immediate return to this or the closest emergency department or call 911. SHAUNA GAYLE was seen on 04/30/23 n the Emergency Room. At that time you were treated for an emergent condition, during your visit Laboratory, Radiology and/or other procedures may have been ordered. It is very important that you follow-up with your Primary Care Physician NEGRO DUMONT within the next 24-48 hours to review your Emergency Room visit and the final results of testing that was ordered. Some test results such as Urine Cultures, Blood Cultures, and other cultures if ordered will not be finalized for 24-48 hours. If you do not have a Primary Care Provider please call the medical records department at [phone] ext [phone] to obtain a copy of your results or you may sign into our patient portal to obtain these results by visiting us @ [email or web address] and completing the following steps: 1. Click on the Patient Portal link 2. Click the Patient Self Enrollment Link to complete the enrollment form and entering your 3. Once the enrollment form is completed you will receive an email with a temporary ID and password at the email address you provided. 4. Next choose a user name and password. Your user name must be at least 4 characters long and your password must be at least 4 characters long. 5. Choose a security question from the list and provide your answer to the question. If you already have signed into the Health Portal you may access your Health Care Information 14/03 by the following steps: 1. Login to our website @ [email or web address] 2. Enter your original user name and password. FAQS The [facility] Health Portal is an online tool that contains your Lab Results, Radiology Reports, Visit History, Discharge Instructions and Health Summary Lab and Radiology Results will not be available for 72 hours on the portal. The Portal is a secure site, passwords are encryted and URLs are re-written so they cannot be copied and pasted. You and authorized family members are the only ones who can access your Portal. Also there is a timeout feature that protects your information if you leave the Portal page open. If you have technical difficulty please use the Contact Us link on the page this will allow you to submit any questions you have regarding the Portal or you may contact the Medical Record Department at [phone] ext [phone]. Prescriptions: Dicyclomine HCl 20 mg [Bentyl 20 mg] 20 mg PO TID #30 tablet
[2023-04-30] MEDS ORDERED: Zofran 4 MG/2 ML VIAL ONE (14:42)
[2023-04-30] MEDS ORDERED: BENADRYL 50 MG/ML ONE (14:42)
[2023-04-30] MEDS ORDERED: SUBLIMAZE 100 MCG/2 ML ONE (14:43)
[2023-04-30 15:13] LABS: Absolute Neutrophil Ct (ANC) 2.88 x10^3/uL (1.4-6.9); BASOPHIL % 0.4 % (0.0-0.4); Basophil (Absolute #) 0.02 x10^3/uL (0-0.4); Eosinophil % 0.6 % (0.00-5.0); Eosinophil (Absolute #) 0.03 x10^3/uL (0-0.5); Hematocrit 36.5 % (35-47); IMMATURE GRAN # 0.01 x10^3u/L (0.00-0.03); IMMATURE GRAN % 0.2 % (0.00-0.4); Lymphocyte (Absolute #) 1.82 x10^3/uL (1.0-4.6); Lymphocytes % 34.6 % (24.0-44.0); Mean Cell Volume 83.3 fL (78-100); Mean Corpuscular Hemoglobin 25.1 pg (26-32); Mean Corpuscular Hgb Concent. 30.1 g/dL (32-36); Mean Platelet Volume 10.8 fL (7.5-11.0); Monocytes % 9.5 % (0.0-12.0); Neutrophil % 54.7 % (36.0-66.0); Platelet Count 215 x10^3/uL (150-450); Red Blood Count 4.38 x10^6/uL (4.1-5.4); Red Cell Distribution Width 14.4 % (11.5-14.0); White Blood Count 5.3 x10^3/uL (4.0-10.5)
[2023-04-30] MEDS ORDERED: Hydromorphone 1 mg/ml Injection IV ONE (15:19)
[2023-04-30] MEDS ORDERED: Hydromorphone 1 mg/ml Injection ONE (15:20)
[2023-04-30 15:25] LABS: ALBUMIN 4.8 g/dL (3.5-5.0); ANION GAP 14.7 MEQ/L (5-15); BILIRUBIN,TOTAL 0.4 mg/dL (0.2-1.3); Calcium 9.4 mg/dL (8.4-10.2); Creatinine 1 1.43 mg/dL (0.52-1.04); EST GLOMERULAR FILTRATION RATE 50.2 ML/MIN; Potassium 3.7 mmol/L (3.5-5.1)
[2023-04-30] MEDS ORDERED: PROTONIX 40 MG IV IV ONE ×2 (15:58→16:02)
[2023-04-30] MEDS ORDERED: Reglan 10 MG/2 ML IV ONE (15:58)
[2023-04-30] MEDS ORDERED: Reglan 10 MG/2 ML ONE (16:02)
--- NOTE | 2023-04-30 16:12 | XRAY ---
CLINICAL HISTORY:left upper quadrant pain COMPARISON:02/25/2023. TECHNIQUE:A CT scan of the abdomen and pelvis was performed without IV contrast. No oral contrast. Coronal and sagittal reconstructive images were also obtained. FINDINGS: A scan through the lower chest reveals an unremarkable lung basis and heart. Abdomen: The liver is of average size and measures 16.7 cm. No focal or diffuse parenchymal abnormality. The gallbladder is distended and shows no definite stones. There is no evidence of wall thickening/ pericholecystic collection. The portal vein, intrahepatic biliary radicals, and the bile ducts are normal. The spleen, pancreas, and adrenal glands are unremarkable. The kidneys are unremarkable. They are normal in size and shape. No calculi or hydronephrosis. The ascending colon, the transverse colon, the descending colon, visualized small bowel loops are unremarkable. There is no evidence of significant enlargement of the mesenteric or retroperitoneal lymph nodes. Pelvis: The urinary bladder is unremarkable. The rectosigmoid colon is unremarkable. The cystic area measures 3.3 X 2.5 cm in the left adnexum could be a follicular cyst. The uterus and ovaries are unremarkable. The pelvic vasculature is unremarkable. No evidence of pelvic lymphadenopathy. No definite bony abnormalities could be depicted. Diffuse disc bulge measures 6.6 mm at L4-L5 level causing bilateral neural foramen narrowing. IMPRESSION: 1. The cystic area measures 3.3 X 2.5 cm seen in the left adnexum could be a follicular cyst(new finding), would recommend sonography for further evaluation and sonographic follow-up. 2. Redemonstaration of unchanged diffuse disc bulge measures 6.6 mm at L4-L5 level causing bilateral neural foramen narrowing, would recommend MRI for further evaluation. 3. The rest of the CT study of the abdomen and pelvis appears unremarkable. Electronically Signed by: Debora Bernabe MD. (04/30/2023 15:10:47 EXAMINATION PROCTOR)
[2023-04-30] MEDS ORDERED: solu-MEDROL 125 MG, Sterile H2O 10 ml 2 ML IV ONE ×2 (16:17)
[2023-04-30] MEDS ORDERED: solu-MEDROL ONE (16:23)
[2023-04-30] MEDS ORDERED: Sterile H2O 10 ml IJ ONE (16:23)
[2023-04-30 16:30] VITALS: O2SAT 100
[2023-04-30 16:57] LABS: Appearance Clear (Clear); Bilirubin Negative (Negative); Blood Negative (Negative); Glucose, Urine Negative (Negative); Ketones Negative (Negative); Leukocyte Esterase Trace (Negative); Nitrite Positive (Negative); Ph 7.5 (4.6-8.0); Protein,Urine Dip Negative (Negative); RBC 0-2 /HPF (0-5); Specific Gravity <=1.005 (1.005-1.030); Urobilinogen 0.2 mg/dL (0.2)
[2023-04-30 16:58] LABS: ADD URINE CULTURE? YES (NO); Bacteria Many /HPF (None Seen); Epithelial Cells None Seen /HPF (None Seen); WBC 0-2 /HPF (0-5)
[2023-04-30 17:11] VITALS: BP 105/54; PULSE 94; RESP 19
== END 2023-04-30 17:17 | disposition home or self-care (01) ==
LOC: ED 13:51
DX: N83.202 Unspecified ovarian cyst, left side (principal); K51.90 Ulcerative colitis, unspecified, without complications; R10.12 Left upper quadrant pain; R10.32 Left lower quadrant pain; R11.2 Nausea with vomiting, unspecified; R06.02 Shortness of breath; Z79.52 Long term (current) use of systemic steroids; Z79.899 Other long term (current) drug therapy
CPT/HCPCS: 36000; 36415; 74176; 80053; 81001; 82150; 83690; 85025; 87077; 87086; 87186; 93005; 96374; 96375; 99284; 99291; J1170; J1200; J2405; J2930; J3010

== ENCOUNTER 2023-07-04 10:59 | Emergency (ER) | payer OTHER, MEDICAID ==
[2023-07-04 11:16] VITALS: TEMP 97.4
[2023-07-04] MEDS ORDERED: Sodium Chloride 0.9% 1000 ML 1,000 ML IV STA (12:20)
[2023-07-04 12:43] LABS: Absolute Neutrophil Ct (ANC) 3.64 x10^3/uL (1.4-6.9); BASOPHIL % 0.8 % (0.0-0.4); Basophil (Absolute #) 0.06 x10^3/uL (0-0.4); Eosinophil % 1.1 % (0.00-5.0); Eosinophil (Absolute #) 0.08 x10^3/uL (0-0.5); Hematocrit 36.1 % (35-47); Hemoglobin 11.1 g/dL (12.0-16.0); IMMATURE GRAN # 0.01 x10^3u/L (0.00-0.03); IMMATURE GRAN % 0.1 % (0.00-0.4); Lymphocyte (Absolute #) 2.67 x10^3/uL (1.0-4.6); Lymphocytes % 37.8 % (24.0-44.0); Mean Cell Volume 84.1 fL (78-100); Mean Corpuscular Hemoglobin 25.9 pg (26-32); Mean Corpuscular Hgb Concent. 30.7 g/dL (32-36); Mean Platelet Volume 10.6 fL (7.5-11.0); Monocytes % 8.5 % (0.0-12.0); Neutrophil % 51.7 % (36.0-66.0); Platelet Count 195 x10^3/uL (150-450); Red Blood Count 4.29 x10^6/uL (4.1-5.4); Red Cell Distribution Width 16.2 % (11.5-14.0); White Blood Count 7.1 x10^3/uL (4.0-10.5)
[2023-07-04] MEDS ORDERED: Hydromorphone 1 mg/ml Injection IV ONE ×2 (12:47→14:25)
[2023-07-04] MEDS ORDERED: Zofran 4 MG/2 ML VIAL IV ONE (12:48)
[2023-07-04] MEDS ORDERED: Zofran 4 MG/2 ML VIAL ONE (12:49)
[2023-07-04] MEDS ORDERED: Sodium Chloride 0.9% 1000 ML 1,000 ML ONE (12:49)
[2023-07-04] MEDS ORDERED: Hydromorphone 1 mg/ml Injection ONE ×2 (12:49→14:40)
[2023-07-04 12:55] LABS: Appearance Clear (Clear); Bacteria Moderate /HPF (None Seen); Bilirubin Negative (Negative); Blood Negative (Negative); Epithelial Cells Moderate /HPF (None Seen); Glucose, Urine Negative (Negative); Hyaline Casts NONE SEEN /LPF (0-2); Ketones Negative (Negative); Leukocyte Esterase Trace (Negative); Nitrite Negative (Negative); Ph 6.5 (4.6-8.0); Protein,Urine Dip Negative (Negative); RBC 0-2 /HPF (0-5); Urobilinogen 0.2 mg/dL (0.2)
[2023-07-04 12:57] LABS: ADD URINE CULTURE? YES (NO)
[2023-07-04 12:59] LABS: INR 1.01 (0.8-3.0)
[2023-07-04 13:06] LABS: HCG SERUM TEST NEGATIVE (NEGATIVE)
[2023-07-04 13:07] LABS: ALBUMIN 4.4 g/dL (3.5-5.0); BILIRUBIN,TOTAL 0.3 mg/dL (0.2-1.3); Calcium 9.1 mg/dL (8.4-10.2); Creatinine 1 0.73 mg/dL (0.52-1.04); EST GLOMERULAR FILTRATION RATE 120.7 ML/MIN; Total Protein 7.8 g/dL (6.3-8.2)
--- NOTE | 2023-07-04 14:34 | XRAY ---
Indication: Left lower quadrant pain. Multiple contiguous axial images obtained through abdomen and pelvis using 80 cc Isovue 370 contrast. Comparison: April 30, 2023 Lung bases clear. Heart not enlarged. Noncontrasted stomach and bowel loops nonobstructed with normal appendix. Worsening moderate diffuse colonic fecal stasis. Again 2.6 cm left ovary cyst, previously 3.3 cm. 9 mm left renal cyst not seen on previous noncontrast exam. No free fluid/air. Remaining liver, gallbladder, pancreas, spleen, adrenal glands, kidneys, ureters, bladder, uterus, and aorta are unremarkable. No pathologic retroperitoneal lymphadenopathy. Osseous structures intact. Impression: 1. Worsening diffuse fecal stasis. 2. Smaller dominant left ovary cyst. 3. Incidental tiny left renal cyst.
--- NOTE | 2023-07-04 14:36 | XRAY ---
Indication: Left pelvic pain. Two-dimensional transvaginal pelvic sonogram performed. Comparison: May 05, 2023 Uterus again anteverted measuring 7.9 x 3.5 x 4.7 cm. No focal solid/cystic uterine mass. Endometrial stripe measures 6.7 mm. No endometrial cavity mass or fluid collection. Right ovary measures 2.9 x 2.0 x 2.0 cm and left measures 3.1 x 2.0 x 3.5 cm. Normal follicular cysts and perfusion bilaterally. Tiny cul-de-sac fluid presumed physiologic from rupture/leaking cyst. Impression: Tiny physiologic cul-de-sac fluid. Remaining transvaginal pelvic sonogram continues to be negative.
[2023-07-04] MEDS ORDERED: Reglan 10 MG/2 ML IV ONE (15:16)
[2023-07-04] MEDS ORDERED: Reglan 10 MG/2 ML ONE (15:17)
--- NOTE | 2023-07-04 15:50 | ERPHSYRPT ---
- History of Present Illness Time Seen by Provider: 07/04/23 11:20 Historian: patient, family Exam Limitations: no limitations Patient Subjective Stated Complaint: Pt states "I was working and my left side started to hurt and everything got all black and I woke up." Triage Nursing Assessment: Pt presented alert and oriented x 3, skin pwd. Pt ambulates with a slow gait, able to speak in clear full sentences. PT in no apparent respiratory distress. Physician History: Patient is a 18-year-old white female who has inflammatory bowel disease and frequent episodes of anemia who presented with a complaint of a left cyst on the ovary measuring 3.3 cm in the past today she developed pain in the left lower quadrant and had a syncopal episode. She is scheduled for an ultrasound of the little pelvis tomorrow. Timing/Duration: today Activities at Onset: activity (Normal activity) Abdominal Pain Onset Location: LLQ Severity of Pain-Max: severe Severity of Pain-Current: moderate Allergies/Adverse Reactions: amoxicillin Allergy (Verified 04/30/23 13:55) Itching meperidine [From Demerol] Allergy (Verified 04/30/23 15:19) mesalamine Allergy (Verified 04/30/23 13:55) Penicillins Allergy (Verified 04/30/23 13:55) Itching Home Medications: Promethazine HCl 25 mg [Phenergan 25 mg] 25 mg PO Q6HPRN PRN 02/17/23 [History] Adalimumab [Humira(Cf) Pen] 0.4 ml SQ CLARIFY 04/30/23 [History] Hx Tetanus, Diphtheria Vaccination/Date Given: Yes Hx Influenza Vaccination/Date Given: Yes Hx Pneumococcal Vaccination/Date Given: No Travel Risk - International Travel Have you traveled outside of the country in past 3 weeks: No - Coronavirus Screening Are you exhibiting any of the following symptoms?: No Close contact with a COVID-19 positive Pt in past 14-21 Days: No - Vaccine Status Have you recieved a Covid-19 vaccination: Yes 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 - Review of Systems Constitutional: No Fever, No Chills Eyes: No Symptoms Ears, Nose, & Throat: No Symptoms Respiratory: No Cough, No Dyspnea Cardiac: No Chest Pain, No Edema, No Syncope Abdominal/Gastrointestinal: Abdominal Pain, No Nausea, No Vomiting, No Diarrhea Genitourinary Symptoms: No Dysuria Musculoskeletal: No Back Pain, No Neck Pain Skin: No Rash Neurological: No Dizziness, No Focal Weakness, No Sensory Changes Psychological: No Symptoms Endocrine: No Symptoms All Other Systems: Reviewed and Negative - Past Medical History Pertinent Past Medical History: Yes Neurological History: Migraines ENT History: No Pertinent History Cardiac History: No Pertinent History Respiratory History: No Pertinent History Endocrine Medical History: No Pertinent History Musculoskeletal History: No Pertinent History GI Medical History: Colitis, Crohns Disease, GI Bleed History: No Pertinent History Psycho-Social History: Anxiety Female Reproductive Disorders: No Pertinent History Other Medical History: ULCERATIVE COLITIS, 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 SHE WOULD LIFT 295# WITH SQUATS, 130# WITH BENCH, PULLS 100-150#. SHE WORE A BACK BRACE AT THE TIME. ovarian cyst on left side - Past Surgical History Past Surgical History: Yes Cardiac: No Pertinent History Respiratory: No Pertinent History Gastrointestinal: No Pertinent History Other Surgical History: wisdom teeth removal - Social History Smoking Status: Never smoker Exposure to second hand smoke: No Drug Use: none Patient Lives Alone: No - Female History Hx Last Menstrual Period: 06/15/2023 Hx Now: (unknown) - Nursing Vital Signs Nursing Vital Signs: Initial Vital Signs Temperature 97.4 F 07/04/23 11:10 Pulse Rate 86 07/04/23 11:10 Respiratory Rate 20 07/04/23 11:10 Blood Pressure 133/72 07/04/23 11:10 O2 Sat by Pulse Oximetry 100 07/04/23 11:10 Pain Scale Pain Intensity 8 - Physical Exam General Appearance: mild distress, alert Eye Exam: PERRL/EOMI, eyes nml inspection Ears, Nose, Throat Exam: normal ENT inspection, pharynx normal, moist mucous membranes Neck Exam: normal inspection, non-tender, supple, full range of motion Respiratory Exam: normal breath sounds, lungs clear, No respiratory distress Cardiovascular Exam: regular rate/rhythm, normal heart sounds Gastrointestinal/Abdomen Exam: soft, tenderness, guarding, No mass Pelvic Exam: vaginal bleeding Back Exam: normal inspection, normal range of motion, No CVA tenderness, No vertebral tenderness Extremity Exam: normal inspection, normal range of motion, pelvis stable Neurologic Exam: alert, oriented x 3, cooperative, normal mood/affect, nml cerebellar function, sensation nml, No motor deficits Skin Exam: normal color, warm, dry SpO2: 99 - Course Nursing assessment & vital signs reviewed: Yes Ordered Tests: Active Orders 24 hr Category Date Time Status ABDOMEN AND PELVIS W CONTRAST [CT] Stat Exams 07/04/23 12:20 Completed PELVIS TRANS VAGINAL [US] Stat Exams 07/04/23 12:21 Completed CBC W DIFF Stat Lab 07/04/23 12:42 Completed CMP Stat Lab 07/04/23 12:42 Completed CULTURE,URINE Stat Lab 07/04/23 12:47 Received HCG QUALITATIVE, SERUM Stat Lab 07/04/23 12:42 Completed LIPASE Stat Lab 07/04/23 12:42 Completed Lactic Acid Stat Lab 07/04/23 12:42 Completed PROTIME WITH INR Stat Lab 07/04/23 12:42 Completed UA W/RFX UR CULTURE Stat Lab 07/04/23 12:47 Completed Medication Summary Discontinued Medications Generic Name Dose Route Start Last Admin Trade Name Freq PRN Reason Stop Dose Admin Hydromorphone HCl 1 mg 07/04/23 12:47 07/04/23 12:52 Hydromorphone 1 Mg/1ml Inj IV 07/04/23 12:48 1 mg STAT ONE Administration Hydromorphone HCl Confirm 07/04/23 12:49 Hydromorphone 1 Mg/1ml Inj Administered 07/04/23 12:50 Dose 1 mg .ROUTE .STK-MED ONE Hydromorphone HCl 1 mg 07/04/23 14:25 07/04/23 14:42 Hydromorphone 1 Mg/1ml Inj IV 07/04/23 14:26 1 mg STAT ONE Administration Hydromorphone HCl Confirm 07/04/23 14:40 Hydromorphone 1 Mg/1ml Inj Administered 07/04/23 14:41 Dose 1 mg .ROUTE .STK-MED ONE Sodium Chloride 1,000 mls @ 999 mls/hr 07/04/23 12:20 07/04/23 13:55 Sodium Chloride 0.9% 1000 Ml IV 07/04/23 13:20 Infused .Q1H1M STA Infusion Sodium Chloride Confirm 07/04/23 12:49 Sodium Chloride 0.9% 1000 Ml Administered 07/04/23 12:50 Dose 1,000 mls @ ud .ROUTE .STK-MED ONE Metoclopramide HCl 10 mg 07/04/23 15:16 07/04/23 15:18 Metoclopramide Hcl 10 Mg/2 Ml Vial IV 07/04/23 15:17 10 mg STAT ONE Administration Metoclopramide HCl Confirm 07/04/23 15:17 Metoclopramide Hcl 10 Mg/2 Ml Vial Administered 07/04/23 15:18 Dose 10 mg .ROUTE .STK-MED ONE Ondansetron HCl 4 mg 07/04/23 12:48 07/04/23 12:52 Ondansetron Hcl 4 Mg/2 Ml Vial IV 07/04/23 12:49 4 mg STAT ONE Administration Ondansetron HCl Confirm 07/04/23 12:49 Ondansetron Hcl 4 Mg/2 Ml Vial Administered 07/04/23 12:50 Dose 4 mg .ROUTE .STK-MED ONE Lab/Rad Data: Laboratory Result Diagrams 07/04/23 12:42 07/04/23 12:42 Laboratory Results 07/04/23 07/04/23 07/04/23 Range/Units 12:47 12:42 12:42 WBC (4.0-10.5) x10^3/uL RBC (4.1-5.4) x10^6/uL Hgb (12.0-16.0) g/dL Hct (35-47) % MCV (78-100) fL MCH (26-32) pg MCHC (32-36) g/dL RDW (11.5-14.0) % Plt Count (150-450) x10^3/uL MPV (7.5-11.0) fL Gran % (36.0-66.0) % Immature Gran % (Auto) (0.00-0.4) % Nucleat RBC Rel Count (0.00-0.1) % Eos # (Auto) (0-0.5) x10^3/uL Immature Gran # (Auto) (0.00-0.03) x10^3u/L Absolute Lymphs (auto) (1.0-4.6) x10^3/uL Absolute Monos (auto) (0.0-1.3) x10^3/uL Absolute Nucleated RBC (0.00-0.01) x10^3u/L Lymphocytes % (24.0-44.0) % Monocytes % (0.0-12.0) % Eosinophils % (0.00-5.0) % Basophils % (0.0-0.4) % Absolute Granulocytes (1.4-6.9) x10^3/uL Basophils # (0-0.4) x10^3/uL PT 11.0 (9.4-12.5) SECONDS INR 1.01 (0.8-3.0) Sodium (137-145) mmol/L Potassium (3.5-5.1) mmol/L Chloride (98-107) mmol/L Carbon Dioxide (22-30) mmol/L Anion Gap (5-15) MEQ/L BUN (7-17) mg/dL Creatinine (0.52-1.04) mg/dL Estimated GFR ML/MIN Glucose (74-106) mg/dL Lactic Acid (0.4-2.0) Calcium (8.4-10.2) mg/dL Total Bilirubin (0.2-1.3) mg/dL AST (14-36) U/L ALT (0-35) U/L Alkaline Phosphatase (38-126) U/L Serum Total Protein (6.3-8.2) g/dL Albumin (3.5-5.0) g/dL Lipase (23-300) U/L Serum HCG, Qual NEGATIVE (NEGATIVE) Urine Color Yellow (Yellow) Urine Appearance Clear (Clear) Urine pH 6.5 (4.6-8.0) Ur Specific [place] 1.020 (1.005-1.030) Urine Protein Negative (Negative) Urine Glucose (UA) Negative (Negative) mg/dL Urine Ketones Negative (Negative) Urine Blood Negative (Negative) Urine Nitrite Negative (Negative) Urine Bilirubin Negative (Negative) Urine Urobilinogen 0.2 (0.2) mg/dL Ur Leukocyte Esterase Trace A (Negative) U Hyaline Cast (Auto) NONE SEEN (0-2) /LPF Urine Microscopic RBC 0-2 (0-5) /HPF Urine Microscopic WBC 6-10 A (0-5) /HPF Ur Epithelial Cells Moderate A (None Seen) /HPF Urine Bacteria Moderate A (None Seen) /HPF Urine Culture Reflexed YES (NO) 07/04/23 07/04/23 07/04/23 Range/Units 12:42 12:42 12:42 WBC 7.1 (4.0-10.5) x10^3/uL RBC 4.29 (4.1-5.4) x10^6/uL Hgb 11.1 L (12.0-16.0) g/dL Hct 36.1 (35-47) % MCV 84.1 (78-100) fL MCH 25.9 L (26-32) pg MCHC 30.7 L (32-36) g/dL RDW 16.2 H (11.5-14.0) % Plt Count 195 (150-450) x10^3/uL MPV 10.6 (7.5-11.0) fL Gran % 51.7 (36.0-66.0) % Immature Gran % (Auto) 0.1 (0.00-0.4) % Nucleat RBC Rel Count 0.0 (0.00-0.1) % Eos # (Auto) 0.08 (0-0.5) x10^3/uL Immature Gran # (Auto) 0.01 (0.00-0.03) x10^3u/L Absolute Lymphs (auto) 2.67 (1.0-4.6) x10^3/uL Absolute Monos (auto) 0.60 (0.0-1.3) x10^3/uL Absolute Nucleated RBC 0.00 (0.00-0.01) x10^3u/L Lymphocytes % 37.8 (24.0-44.0) % Monocytes % 8.5 (0.0-12.0) % Eosinophils % 1.1 (0.00-5.0) % Basophils % 0.8 (0.0-0.4) % Absolute Granulocytes 3.64 (1.4-6.9) x10^3/uL Basophils # 0.06 (0-0.4) x10^3/uL PT (9.4-12.5) SECONDS INR (0.8-3.0) Sodium 137 (137-145) mmol/L Potassium 4.0 (3.5-5.1) mmol/L Chloride 105 (98-107) mmol/L Carbon Dioxide 23 (22-30) mmol/L Anion Gap 13.0 (5-15) MEQ/L BUN 15 (7-17) mg/dL Creatinine 0.73 (0.52-1.04) mg/dL Estimated GFR 120.7 ML/MIN Glucose 92 (74-106) mg/dL Lactic Acid 0.7 (0.4-2.0) Calcium 9.1 (8.4-10.2) mg/dL Total Bilirubin 0.30 (0.2-1.3) mg/dL AST 21 (14-36) U/L ALT 15 (0-35) U/L Alkaline Phosphatase 156 H (38-126) U/L Serum Total Protein 7.8 (6.3-8.2) g/dL Albumin 4.4 (3.5-5.0) g/dL Lipase 153 (23-300) U/L Serum HCG, Qual (NEGATIVE) Urine Color (Yellow) Urine Appearance (Clear) Urine pH (4.6-8.0) Ur Specific [place] (1.005-1.030) Urine Protein (Negative) Urine Glucose (UA) (Negative) mg/dL Urine Ketones (Negative) Urine Blood (Negative) Urine Nitrite (Negative) Urine Bilirubin (Negative) Urine Urobilinogen (0.2) mg/dL Ur Leukocyte Esterase (Negative) U Hyaline Cast (Auto) (0-2) /LPF Urine Microscopic RBC (0-5) /HPF Urine Microscopic WBC (0-5) /HPF Ur Epithelial Cells (None Seen) /HPF Urine Bacteria (None Seen) /HPF Urine Culture Reflexed (NO) - Progress Progress: pain not gone completely Medical Desision Making - Independent Historian Additional History obtained from: Family - Diagnostic Testing Radiological Interpretation: Reviewed by me - Risk of complications Low Risk: Low risk of morbidity from additional dx testing or treatment - Departure Departure Disposition: Home Clinical Impression: Ruptured ovarian cyst, Left sided abdominal pain Condition: Fair Critical Care Time: No Referrals: NEGRO DUMONT MD [Primary Care Provider] - Follow up/PCP as directed Instructions: Syncope (Fainting) (DC), Ovarian Cyst (DC) Prescriptions: Oxycodone/APAP 5 mg/325 mg [Percocet Tablet 5/325Mg] 1 tab PO Q6H 3 Days #12 tablet MDD 4 Metoclopramide HCl 10 mg [Reglan 10 MG] 10 mg PO Q6H 5 Days #20 tablet
[2023-07-04] MEDS ORDERED: solu-MEDROL 125 MG, Sterile H2O 10 ml 2 ML IV ONE ×2 (15:57)
[2023-07-04] MEDS ORDERED: BENADRYL 50 MG/ML IV ONE (15:57)
[2023-07-04] MEDS ORDERED: solu-MEDROL ONE (15:59)
[2023-07-04] MEDS ORDERED: Sterile H2O 10 ml IJ ONE (15:59)
[2023-07-04] MEDS ORDERED: BENADRYL 50 MG/ML ONE (15:59)
[2023-07-04 16:02] VITALS: O2SAT 99
[2023-07-04 16:34] VITALS: BP 120/66; PULSE 72; RESP 19
== END 2023-07-04 16:49 | disposition home or self-care (01) ==
LOC: ED 10:59
DX: N83.202 Unspecified ovarian cyst, left side (principal); R10.32 Left lower quadrant pain; R55 Syncope and collapse; Z79.891 Long term (current) use of opiate analgesic; Z79.899 Other long term (current) drug therapy
CPT/HCPCS: 36000; 36415; 74177; 76830; 80053; 81001; 83605; 83690; 84703; 85025; 85610; 87086; 96360; 96374; 96375; 96376; 99284; J1170; J1200; J2405; J2930